=== PATIENT | female | born 1955 | race Caucasian/White ===

== ENCOUNTER 2023-10-02 15:42 | Emergency (ER) | payer MEDICARE, SELFPAY ==
--- NOTE | ~2023-10-02 | XR_ITS ---
XR finger 2nd LT min 2V DATE: 10/02/2023 16:17 INDICATION: Erythema, swelling, tenderness at the distal interphalangeal joint of the second digit TECHNIQUE: AP and lateral views COMPARISON: None FINDINGS: There is severe joint space narrowing and prominent spurring of the distal interphalangeal joints of the second and included third digits. No erosive change is noted. There is approximately 20 degrees apex lateral attenuation at the second digit distal interphalangeal joint. Moderate osteoarthritis at the second digit proximal interphalangeal joint.. Osteoarthritic changes noted at the interphalangeal joint of the first digit and at the first metacar pophalangeal joint. IMPRESSION: Polyarticular osteoarthritic arthritis, but there is severe the distal interphalangeal ja ints of the second and third digits Reviewed, dictated and finalized at location A. [employer]END[employer] IMPRESSION: Polyarticular osteoarthritic arthritis, but there is severe the dis wale interphalangeal joints of the second and third digits
[2023-10-02 16:02] VITALS: BP 138/61; PULSE 73; RESP 16; TEMP 36.8; O2SAT 99
--- NOTE | 2023-10-02 16:11 | ED.GENADULT ---
HPI - General Adult General Chief complaint: Extremity Problem,Nontraumatic Stated complaint: Left Index Finger Irritation Time Seen by Provider: 10/02/23 15:44 Source: patient, RN notes reviewed and old records reviewed Mode of arrival: ambulatory Limitations: no limitations History of Present Illness HPI narrative: 68-year-old female presents to [facility] with complaint left 2nd finger pain and swelling. patient states swelling started 2-3 days ago then noticed redness and limited range of motion yesterday. Patient denies injury denies fever. MD complaint: 2-3 Onset (ago): day(s) Location: upper extremity Radiation: non-radiation Severity: moderate Related Data Home Medications Medication Instructions Recorded Confirmed aspirin 325 mg tablet 325 mg PO EVERY OTHER DAY 10/02/23 10/02/23 cetirizine 10 mg tablet (Zyrtec) 10 mg PO DAILY 10/02/23 10/02/23 cholecalciferol (vitamin D3) 125 125 mcg PO DAILY 10/02/23 10/02/23 mcg (5,000 unit) tablet (Vitamin D3) ezetimibe 10 mg tablet 10 mg PO DAILY 10/02/23 10/02/23 fluticasone furoate 200 1 inh inhalation DAILY 10/02/23 10/02/23 mcg-vilanterol 25 mcg/dose inhalation powder (Breo Ellipta) fluticasone propionate 50 50 mcg intranasal DAILY 10/02/23 10/02/23 mcg/actuation nasal spray,suspension montelukast 10 mg tablet 10 mg PO DAILY 10/02/23 10/02/23 (Singulair) oawgxhndhtbi-dvwaoxzc-vtcqeo tablet 1 tablet PO DAILY 10/02/23 10/02/23 propafenone 225 mg tablet 225 mg PO DAILY 10/02/23 10/02/23 rosuvastatin 10 mg tablet 10 mg PO DAILY 10/02/23 10/02/23 telmisartan 40 mg tablet 40 mg PO DAILY 10/02/23 10/02/23 Allergies Allergy/AdvReac Type Severity Reaction Status Date / Time bacitracin Allergy Redness of Verified 10/02/23 16:16 [From Neosporin Skin ([id number])] neomycin Allergy Redness of Verified 10/02/23 16:16 [From Neosporin Skin ([id number])] polymyxin B Allergy Redness of Verified 10/02/23 16:16 [From Neosporin Skin ([id number])] povidone-iodine Allergy Redness of Verified 10/02/23 16:16 [From Betadine] Skin Sulfa (Sulfonamide Allergy Hives Verified 10/02/23 15:55 Antibiotics) Review of Systems Review of Systems: All systems reviewed & are unremarkable except as noted in HPI and below Constitutional: Constitutional: Reports no additional constitutional complaints Eyes: Eyes: Reports no additional eye complaints ENT: Reports system reviewed and no additional complaints, except as documented Cardiovascular: Cardiovascular: Reports no additional cardiovascular complaints Respiratory: Respiratory: Reports no additional respiratory complaints Musculoskeletal: Musculoskeletal: Reports arthralgias and Reports joint swelling Comments: redness and swelling the DIP joint of the left 2nd finger Neurologic: Reports system reviewed and no additional complaints, except as documented PMFSH Comments At the time of my signature, I reviewed and agree with the nursing past medical, surgical, social, and family history. There is no relevant family history pertinent to the patient complaint. Exam Const: General: cooperative, healthy appearing, no acute distress and well nourished Nutritional Appearance: well nourished Orientation/consciousness: patient oriented x3 Limitations: no limitations HENMT: Head: normal to inspection and normocephalic Ears: external ears normal, TM's normal bilaterally, mastoids normal and Abnormal EAC present Face/Nose/Sinus: normal facial exam Face and sinus: normal facial exam Mouth: Yes Normal oral and palatal mucosa present, Yes oropharynx normal and Yes moist mucous membranes Throat: posterior oropharynx normal, tonsils normal, uvula midline and no uvular edema Eyes: General: appearance normal, both eyes and all related structures Sclera: sclerae normal Pupils: Equal, round and reactive pupils present Resp: Effort & Inspection: normal respiratory effort, abl
== END 2023-10-02 16:48 | disposition home or self-care (01) ==
PROVIDERS: Emergency Provider Registered Nurse
DX: L03.012 Cellulitis of left finger (principal); I48.91 Unspecified atrial fibrillation; E78.00 Pure hypercholesterolemia, unspecified; I10 Essential (primary) hypertension; J45.909 Unspecified asthma, uncomplicated; G47.30 Sleep apnea, unspecified; Z79.82 Long term (current) use of aspirin
CPT/HCPCS: 73140; 99213; G0463